=== PATIENT | male | born 1960 | race Asian ===

== ENCOUNTER → 2017-09-08 09:30 | Outpatient (CLI) | payer BC | END | disposition home or self-care (01) | LOC: AMB 09:30 | DX: E11.69 Type 2 diabetes mellitus with other specified complication (principal); E11.649 Type 2 diabetes mellitus with hypoglycemia without coma ==

== ENCOUNTER 2019-03-08 09:11 | Outpatient (CLI) | payer BC | END 2019-03-08 09:16 | disposition short-term general hospital (02) | LOC: AMB 09:11 | DX: R41.82 Altered mental status, unspecified (principal); E16.2 Hypoglycemia, unspecified | CPT/HCPCS: A0425; A0427 ==

== ENCOUNTER 2019-03-08 09:24 | Emergency (ER) | payer BC ==
[~2019-03-08] VITALS: Ht 167.6 cm; Wt 72.6 kg
[2019-03-08 10:14] LABS: PLATELET COUNT 346 K/uL (142-355)
[2019-03-08 10:20] LABS: POTASSIUM 2.8 mmol/L (3.6-5.2)
[2019-03-08 14:58] VITALS: BP 135/82; TEMP 98.2
== END 2019-03-08 15:01 | disposition home or self-care (01) ==
LOC: ED 09:24
PROVIDERS: Emergency Medicine Emergency Medical Services
DX: E16.2 Hypoglycemia, unspecified (principal); E87.6 Hypokalemia
CPT/HCPCS: 80053; 80307; 81000; 82962; 85027; 93005; 96360; 96361; 96365; 96366; 96375; 99284; J2405